=== PATIENT | female | born 1975 | race Caucasian/White ===

== ENCOUNTER 2020-07-09 09:53 | Outpatient (CLI) | payer OTHER, SELFPAY ==
[2020-07-09 10:50] LABS: Basophils Absolute Auto 0.1 K/mm3 (0.0-0.1); Basophils Percent Auto 0.5 % (0.2-1.2); Eosinophils Absolute Auto 0.3 K/mm3 (0-0.3); Eosinophils Percent Auto 2.9 % (0-4.4); Hematocrit 45.6 % (37.0-47.0); Hemoglobin 15.1 g/dL (12.0-15.0); Immature Granulocyte Absolute 0.05 K/mm3 (0.00-0.031); Immature Granulocyte Percent A 0.5 % (0-0.5); Lymphocytes Absolute Auto 2.25 K/mm3 (0.9-3.2); Lymphocytes Percent Auto 21.7 % (18.3-44.2); Mean Corpuscular HGB Conc 33.1 g/dl (32-36); Mean Corpuscular Hemoglobin 31.7 pg (26-34); Mean Corpuscular Volume 95.8 fl (80-100); Mean Platelet Volume 9.3 fl (7.4-10.4); Monocytes Absolute Auto 0.7 K/mm3 (0.1-0.6); Monocytes Percent Auto 6.5 % (2.6-8.5); Neutrophils Absolute Auto 7.1 K/mm3 (1.3-6.7); Neutrophils Percent Auto 67.9 % (45.5-73.1); Platelet Count Result 389 k/mm3 (150-375); Red Blood Count 4.76 M/mm3 (4.2-5.4); Red Cell Distribution Width 13.4 % (11.5-14.5); White Blood Count 10.4 K/mm3 (4.5-10.0)
[2020-07-09 11:14] LABS: Hemoglobin A1C 5.5 % (<5.7)
[2020-07-09 11:18] LABS: Alanine Aminotransferase 16 U/L (4-35); Albumin Level 4.6 g/dL (3.5-5.1); Alkaline Phosphatase 76 U/L (38-126); Anion Gap 6 mmol/L (8-16); Aspartate Amino Transferase 23 U/L (14-36); Bilirubin,Total 0.5 mg/dL (0.2-1.3); Blood Urea Nitrogen 10 mg/dL (7-17); Calcium 9.7 mg/dL (8.4-10.2); Carbon Dioxide 27 mmol/L (22-30); Chloride 105 mmol/L (98-107); Cholesterol 240 mg/dL (0-200); Estimated Glomerular Filt Rate > 60; Glucose 84 mg/dL (65-105); HDL Direct 39 mg/dL; Potassium 4.3 mmol/L (3.4-5.0); Sodium 138 mmol/L (137-145); Triglycerides 121 mg/dL (<150)
[2020-07-09 11:29] LABS: LDL Cholesterol Direct 172 mg/dL
[2020-07-09 12:12] LABS: Iron 104 ug/dL (37-170); Percent Iron Saturation 27 % (20-50)
[2020-07-09 12:24] LABS: Folic Acid 6.2 ng/mL (2.76->20)
== END 2020-07-09 09:54 | disposition home or self-care (01) ==
PROVIDERS: PCP Family Medicine; Visit Provider Family Medicine
DX: Z00.00 Encounter for general adult medical examination without abnormal findings (principal)
CPT/HCPCS: 36415; 80053; 80061; 82306; 82607; 82746; 83036; 83540; 83550; 84443; 85025

== ENCOUNTER 2020-09-17 15:30 | Outpatient (RCR) | payer OTHER, SELFPAY ==
--- NOTE | 2020-07-22 13:22 | PTOPEVAL ---
PHYSICAL THERAPY EVALUATION Thank you for referring Abi Mendoza to [facility].? Abi was evaluated for the dx of lumbar DDD. The patient is scheduled to be seen for therapy? 1 x/week for 4 weeks (low frequency per patient request). Please review, sign, date and return this plan of care SHAHID. I agree with and certify that the following plan of care is medically necessary. Referring Physician Date Attending Provider: Anya Rodrigues, MD *PT Outpatient Evaluation Start: 07/22/20 10:08 Freq: Status: Active Protocol: Document 07/22/20 10:09 MLV (Rec: 07/22/20 11:29 [facility] [id number]) Assessment Status Evaluation Evaluation Information Problem Diagnosis DDD lumbar spine Onset 3 years ago Cause fell on her tailbone 3 years ago Additional Evaluation Detail The patient has had pain for 3 years, getting worse over time,and had only been given ibuprofen and new MD is giving her tramadol that helps some. Patient feels she can move more since new meds. Patient has gained 60-80lbs in last 3 years which is also aggravating her pain. Patient has pain with activity and rests to get relief. 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 Housework with a slight back bent position is greatest aggravant. Diagnostic Tests X-Rays For This Problem Yes: scoliosis, lumbar DDD/ cartilage loss Pain Assessment Timing of Pain Assessment Timing of Pain Assessment Assessment Pain Scale Pain Scale Used Numeric (1 - 10) Self Report Pain Assessment Lower Back Reported Pain Level 2 Pain Description Aching,Tightness Radicular Pain Location taylor. hips Pain Frequency Continuous Greatest Pain Intensity 9 Pain Aggravating Factors Bending,Exercise/Activity, Walking Pain Behaviors None Pain Score Pain Score 2: Self Report Interventions Used Interventions Used By Clinicians Education,Exercise Pain Relief Interventions Used By Inactivity/Rest,Lying Supine, Patient Medication,Sitting Cervical and Lumbar ROM Lumbar ROM Lumbar Flexion Active [place] Query Text:Hands to: Lumbar Extension (0-40) 40 Query
--- NOTE | 2020-07-26 11:57 | PCPTNOTE ---
Patient called & cancelled scheduled appointment this date due to transportation issues.
--- NOTE | 2020-08-09 09:49 | PCPTNOTE ---
Patient called & cancelled scheduled appointment this date; states she is not getting around well today.
--- NOTE | 2020-08-16 10:14 | PCPTNOTE ---
Patient called & cancelled scheduled appointment this date due to [facility] arriving too late to make her appt. Rescheduled appt.
--- NOTE | 2020-08-27 11:59 | PCPTNOTE ---
Patient called & cancelled scheduled appointment this date with no reason given. Pt did not reschedule.
--- NOTE | 2020-09-06 13:47 | PCPTNOTE ---
Patient called & cancelled scheduled appointment this date due to being ill. Rescheduled again.
--- NOTE | 2020-09-17 15:59 | PTOPEVAL ---
PHYSICAL THERAPY DISCHARGE Thank you for referring Abi Mendoza to [facility].? The patient has been seen 3 visits for the dx of lumbar DDD. Goals are partially met and skilled PT has peaked. PT discontinued. Please review, sign, date and return this plan of care. I agree with and certify the following plan of care. Referring Physician Date Attending Provider: Anya Rodrigues, MD *PT Outpatient Discharge Start: 07/22/20 10:08 Freq: Status: Active Protocol: Document 09/17/20 15:28 MLV (Rec: 09/17/20 15:51 [facility] [id number]) Therapy Assessment Status Assessment Status Assessment Status Discharge Evaluation Information Problem Diagnosis DDD lumbar spine Onset 3 years ago Cause fell on her tailbone 3 years ago Additional Evaluation Detail The patient reports her symptoms are essentially the same since the evaluation. Pt reports relief with the Tramadol and takes only as needed. The meds help decrease the stiffness so that she can do household tasks. The patient reports having no trouble with exercises but has been inconsistent with doing them. The patient has had a lot of personal stressors that limit her motivation. Pain Assessment Timing of Pain Assessment Timing of Pain Assessment Assessment Pain Scale Pain Scale Used Numeric (1 - 10) Self Report Pain Assessment Lower Back Reported Pain Level 4 Pain Description Tightness Other Pain Description more pain in am Greatest Pain Intensity 8 Pain Aggravating Factors Bending,Exercise/Activity Pain Score Pain Score 4: Self Report Interventions Used Interventions Used By Clinicians Education,Exercise Pain Relief Interventions Used By Exercise,Inactivity/Rest, Patient Medication,Position Change Cervical and Lumbar ROM Lumbar ROM Lumbar Flexion Active [place],Ankle Query Text:Hands to: Lumbar Extension (0-40) 40 Query Text:Active in Degrees Lumbar Lateral Flexion Right (0-40) 35 Query Text:Active in Degrees Lumbar Lateral Flexion Left (0-40) 40 Query Text:Active in Degrees Lateral Rotation Right (0-45) 45 Query Text:Active in Degrees Lateral Rotation Left (0-45) 45 Query Text:Active in Degrees Lumbar Comments
== END 2020-09-22 09:12 | disposition home or self-care (01) ==
LOC: ANHPT 15:30
PROVIDERS: PCP Family Medicine; Visit Provider Family Medicine
DX: M51.36 Other intervertebral disc degeneration, lumbar region (principal)
CPT/HCPCS: 97110; 97161

== ENCOUNTER 2021-02-07 11:29 | Outpatient (CLI) | payer OTHER, SELFPAY ==
--- NOTE | ~2021-02-07 | US_ITS ---
EXAMINATION: US soft tissue UE RT DATE: 02/07/2021 11:57 INDICATION: Lump at the dorsal aspect of the fifth proximal interphalangeal joint TECHNIQUE: Multiple grayscale and Doppler ultrasound images of the abdomen were obtained. COMPARISON: None FINDINGS/IMPRESSION: There is focal increased soft tissue overlying the fifth proximal interphalangeal joint which appears to result from fusiform thickening of the extensor tendon sheath. It is unclear whether this results from thickening of the tendon, the surrounding synovium or both. No clearly defined masses or anecho ic fluid collections identified. Reviewed, dictated and finalized at location A.
== END 2021-02-07 11:30 | disposition home or self-care (01) ==
LOC: ANHIMG 11:38
PROVIDERS: PCP Family Medicine
DX: R22.30 Localized swelling, mass and lump, unspecified upper limb (principal)
CPT/HCPCS: 76882

== ENCOUNTER 2021-09-24 10:38 | Emergency (ER) | payer OTHER, SELFPAY ==
[2021-09-24 10:51] VITALS: BP 141/89; PULSE 87; RESP 16; TEMP 36.6; O2SAT 99
--- NOTE | 2021-09-24 11:46 | ED.GENADULT ---
HPI - General Adult General Chief complaint: Wound/Laceration Stated complaint: R FOOT LACERATION Time Seen by Provider: 09/24/21 11:46 Source: patient Mode of arrival: ambulatory Limitations: no limitations History of Present Illness HPI narrative: 46-year-old female patient presents to the [facility] with complaints of a right toe laceration. Patient states that approximately 7:00 this morning she was walking around barefooted and hit her toe on a metal register that was on the floor. Patient denies any history of diabetes. Patient states it has been over 5 years since her last tetanus shot. Related Data Allergies Allergy/AdvReac Type Severity Reaction Status Date / Time No Known Allergies Allergy Verified 09/24/21 11:15 Review of Systems Review of Systems: CONSTITUTIONAL: Denies fever, chills, or sweats. EYES: Denies visual changes, redness, or discharge. ENT: Denies rhinorrhea, congestion, sore throat, or otalgia. CARDIOVASCULAR: Denies chest pain, palpitations, or edema. RESPIRATORY: Denies cough or dyspnea. GASTROINTESTINAL: Denies abdominal pain, nausea, vomiting, or diarrhea. GENITOURINARY: Denies dysuria or hematuria. SKIN: Denies rash or itching. Positive laceration to right second toe MUSCULOSKELETAL: Denies back pain, joint pain, or myalgia. NEUROLOGIC: Denies headache, numbness, or weakness. PSYCHIATRIC: Denies anxiety or depression. PMFSH Past Medical History Medical History Anxiety Depression Essential (primary) hypertension Hyperlipidemia Low back pain Tobacco use Vitamin D deficiency Family History Family History Father Hypertension Mother Hypertension Other Diabetes mellitus Family history of Parkinson's disease Social History Social History Smoking status: Current every day smoker Tobacco type: cigarettes Alcohol intake: current Comments At the time of my signature I agree with nursing past medical history, surgical, social, and family history. There is no relevant family history pertinent to the presenting complaint. Exam Narrative: GENERAL: Well-appearing, well-nourished, and in no acute distress. HEAD: Normocephalic, atraumatic. EYES: PERRLA and EOMI. ENT: Nares clear, no rhinorrhea or epistaxis. Mucous membranes moist. NECK: Supple. No lymphadenopathy CHEST: Clear to auscultation. No respiratory distress. HEART: Regular rate and rhythm. No murmur heard. Normal peripheral pulses. ABDOMEN: Soft, nontender, nondistended, normal active bowel sounds. EXTREMITIES: Normal range of motion. No edema. SKIN: Warm, dry, no rash. Colleague has approximately 1 cm superficial laceration that is well approximated to the third toe on the right foot. It is on the lateral side between the second and third toe. There is no active bleeding at this time. NEURO: No focal deficits. Alert and oriented x3. Course Course Level of Care: Express Care Visit Vital Signs Vital signs: Vital Signs Temperature 36.6 C 09/24/21 10:51 Pulse Rate 87 09/24/21 10:51 Respiratory Rate 16 09/24/21 10:51 Blood Pressure 141/89 H 09/24/21 10:51 Pulse Oximetry 99 09/24/21 10:51 Temperature 36.6 C 09/24/21 10:51 Pulse Rate 87 09/24/21 10:51 Respiratory Rate 16 09/24/21 10:51 Blood Pressure 141/89 H 09/24/21 10:51 Pulse Oximetry 99 09/24/21 10:51 Procedures Laceration Laceration 1: Date: 09/24/21 Time: 12:04 Site: lower extremity (Third toe) Side (If applicable): right Size (cm): 1 Description: linear Depth: simple, single layer Local Anesthetic: none Pre-repair: irrigated ====== Skin Level ====== Skin layer closed with: dermabond and steri strips ====== Subcutaneous Layer ====== ====== Muscle Layer ====== ====== T
--- NOTE | 2021-09-24 12:27 | PC.NURSE ---
after RN had drawn tetanus vaccine and documented, pt refused and states she will confirm with PCP that she has had a tetanus recently
== END 2021-09-24 12:29 | disposition home or self-care (01) ==
PROVIDERS: Emergency Provider Nurse Practitioner Family; PCP Family Medicine
DX: S91.114A Laceration without foreign body of right lesser toe(s) without damage to nail, initial encounter (principal); W22.8XXA Striking against or struck by other objects, initial encounter; I10 Essential (primary) hypertension; E78.5 Hyperlipidemia, unspecified; F17.210 Nicotine dependence, cigarettes, uncomplicated
CPT/HCPCS: 12001; 99212; G0463

== ENCOUNTER 2021-12-28 09:30 | Outpatient (RCR) | payer OTHER, SELFPAY ==
--- NOTE | 2021-12-15 12:03 | PTOPEVAL ---
Thank you for referring Abi Mendoza to [facility].? She is scheduled to be seen for therapy? 2 x/week for 4 weeks. Please review, sign, date and return this plan of care SHAHID. I agree with and certify that the following plan of care is medically necessary. Referring Physician Date Attending Provider: Vidal Gan MD Past Medical History Source of Past Medical History Recalled from Previous Visit, Confirmed with Patient/Family Neurological History Hx Neurological Disorders No Significant History Cardiovascular History Hx Hypertension Yes: meds Respiratory History Hx COVID-19 Yes Hx Other Respiratory Disorders Yes: smoker Gastrointestinal History Hx Gastrointestinal Disorders No Significant History Genitourinary History Hx Genitourinary Disorders No Significant History Musculoskeletal History Hx Arthritis Yes: RA in back Hx Back Pain Yes: chronic back pain Hx Degenerative Disk Disease Yes: lumbar Hx Scoliosis Yes Endocrine History Hx Endocrine Disorders No Significant History HEENT History Hx Other HEENT Disorders Yes: severe gum disease of teeth;no visual depth perception; Integumentary History Hx Skin Disorders No Significant History Reproductive History Hx Reproductive Disorders No Significant History Psychosocial History Hx Depression Yes Pain History History of Any Previous or Ongoing No Significant History Instance of Pain Anesthesia History Hx Anesthesia Reactions No Significant History Other History Hx Other Medical Conditions Yes: gain 140# past 4 yrs,due back pain, have lost 80# of the wt Evaluation Information Diagnosis lumbar radiculopathy Onset 4 yr ago Subjective Information chronic back pain; gradual Query Text:As Reported By Patient/ increase to severe back pain Family about 4 yr ago; have been doing some of the exercises from previous PT, a few of them, but not like she should; have not been to pain management or specialist for back pain; Diagnostic Tests MRI For This Problem Yes: per pt- 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
--- NOTE | 2021-12-20 08:29 | PCPTNOTE ---
Patient did not show up for scheduled appointment this date. Called pt and she stated that the ride service she was going to use was not able to pick her up today.
--- NOTE | 2021-12-26 09:38 | PCPTNOTE ---
Patient called & cancelled scheduled appointment this date due to not being able to make it.
--- NOTE | 2022-01-04 09:25 | PCPTNOTE ---
Patient called & cancelled scheduled appointment this date due to in the family.
--- NOTE | 2022-01-09 14:35 | PCPTNOTE ---
Patient called & cancelled scheduled appointment this date due to having another appointment.
--- NOTE | 2022-01-11 08:51 | PCPTNOTE ---
pt called and canceled today's reeval appt due to increased back pain;
--- NOTE | 2022-02-24 11:41 | PTOPDC ---
Assessment and note entered by Alisa Hood, PT Evaluation Information Assessment Status Discharge - Pt Not Presen Assessment PT Clinical Summary Abi has received 3 PT sessions, from December 15 to , for the diagnosis of lumbar radiculopathy. She did not show for 1 and called/canceled 4 appointments. The goals were not assessed. Discharge PT services. Plan of Care PT Services Indicated No
== END 2022-02-28 13:16 | disposition home or self-care (01) ==
LOC: ANHPT 09:30
PROVIDERS: PCP Family Medicine; Visit Provider Family Medicine
DX: M54.16 Radiculopathy, lumbar region (principal)
CPT/HCPCS: 97110; 97112; 97161